=== PATIENT | female | born 1990 | race Caucasian/White ===

== ENCOUNTER 2019-08-18 18:15 | Emergency (ER) | payer OTHER ==
[2019-08-18] MEDS ORDERED: NA CHLORIDE 0.9% 1,000 ML ONE (19:14)
[2019-08-18 19:17] LABS: Absolute Lymphocytes (CBC) 2.5 K/uL (0.7-4.9); Basophils % 0.7 % (0-1.3); Hematocrit 32.3 % (36.0-45.0); Lymphocytes % 39.3 % (15.3-44.8); MPV 6.8 fL (7.6-11.3); RBC Red Blood Cell Count 3.58 M/uL (3.86-4.86)
[2019-08-18 19:21] LABS: Urine Bacteria <20 /HPF (<20); Urine Culture Reflex Order REFLEXED; Urine Mucus 2+ /HPF (NONE SEEN); Urine RBC <5 /HPF (NONE SEEN)
[2019-08-18 19:22] LABS: Urine Blood NEGATIVE (NEG); Urine Glucose NEGATIVE (NEG); Urine Protein NEGATIVE (NEG); Urine Specific Gravity 1.025 (1.005-1.030); Urine pH 7.5 (5.0-7.0)
[2019-08-18 19:45] LABS: BUN Blood Urea Nitrogen 9 mg/dL (7-18); Bicarbonate 22 mmol/L (21-32); Glucose Level 81 mg/dL (74-106); HCG, Quantitative 28334 mIU/mL (1-3); Potassium 3.6 mmol/L (3.5-5.1); Sodium Level 135 mmol/L (136-145)
--- NOTE | 2019-08-18 20:28 | ER ---
Nurse's Notes [facility] Name: Alla Chacko Age: 28 yrs Sex: Female : 1990 Arrival Date: 08/18/2019 Time: 18:19 Bed 14 Private MD: Brent Molina T Diagnosis: Influenza due to identified novel influenza A virus Presentation: 08/18 18:21 Presenting complaint: Patient states: i started with a really bad cough yesterday and i tw2 woke up today really achy and i had a fever i feel really bad and i feel crampy too, i am 14 weeks . Transition of care: patient was not received from another setting of care. Onset of symptoms was August 18, 2019. Risk Assessment: Do you want to hurt yourself or someone else? Patient reports no desire to harm self or others. Initial Sepsis Screen: Does the patient meet any 2 criteria? HR > 90 bpm. No. Patient's initial sepsis screen is negative. Does the patient have a suspected source of infection? No. Patient's initial sepsis screen is negative. Care prior to arrival: None. 18:21 Method Of Arrival: Ambulatory tw2 18:21 Acuity: SRINI 3 tw2 Triage Assessment: 18:26 General: Appears in no apparent distress. Behavior is calm, cooperative, appropriate tw2 for age. Pain: Complains of pain in abdomen. GI: Reports lower abdominal pain, nausea. 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 - Coronavirus screen:: The patient has NOT traveled to [place], [place], or [place] in the past 14 days. - Social history:: Smoking status: . - Ebola Screening: : Patient denies travel to an Ebola-affected area in the 21 days before illness onset. Screenin:45 Abuse screen: Denies threats or abuse. Denies injuries from another. Nutritional ca1 screening: No deficits noted. Tuberculosis screening: No symptoms or risk factors identified. Fall Risk IV access (20 points). Assessment: 18:45 General: Appears in no apparent distress. comfortable, Behavior is calm, cooperative, ca1 appropriate for age, Reports feeling ill for 12-24 hours. Pain: Complains of pain in suprapubic area, right lower quadrant and left lower quadrant Pain currently is 6 out of 10 on a pain scale. Quality of pain is described as crampy, Pain began 4 hours ago. Is intermittent. Neuro: Level of Consciousness is awake, alert, obeys commands, Oriented to person, place, time, situation, Appropriate for age. Cardiovascular: Heart tones S1 S2 present Capillary refill < 3 seconds Patient's skin is warm and dry. Respiratory: Airway is patent Respiratory effort is even, unlabored, Respiratory pattern is regular, symmetrical, Breath sounds are clear bilaterally. Respiratory: Reports cough that is since yesterday. GI: Abdomen is round non-distended, Bowel sounds present X 4 quads. Abd is soft X 4 quads Abdomen is tender to palpation in suprapubic area, right lower quadrant and left lower quadrant. : No deficits noted. No signs and/or symptoms were reported regarding the genitourinary system. EENT: Reports nasal congestion since yesterday. Derm: Skin is intact, is healthy with good turgor, Skin is pink, warm \T\ dry. Musculoskeletal: Circulation, motion, and sensation intact. Capillary refill < 3 seconds. 19:30 General: Appears in no apparent distress. comfortable, Behavior is calm, cooperative, rr5 appropriate for age. 19:30 Pain: Denies pain. Neuro: Level of Consciousness is awake, alert, obeys commands, rr5 Oriented to person, place, time. Cardiovascular: Capillary refill < 3 seconds Patient's skin is warm and dry. Respiratory: Airway is patent Respiratory effort is even, unlabored, Respiratory pattern is regular, symmetrical. GI: Abdomen is round non-distended, Reports cramping. : Reports . EENT: No signs and/or symptoms were reported regarding the EENT system. Derm: Skin is intact, Skin temperature is warm. Musculoskeletal: Circulation, motion, and sensation intact. Capillary refill < 3 seconds. 20:30 Reassessment: Patient appears in no apparent distress at this time. Patient is alert, rr5 oriented x 3, equal unlabored respirations, skin warm/dry/pink. discharge instruction given and explained without complaints made. Patient states symptoms have improved. Vital Signs: 18:25 BP 123 / 73; Pulse 107; Resp 18; Temp 99.3(TE); Pulse Ox 100% on R/A; Weight 83.91 kg tw2 (R); Height 5 ft. 4 in. (162.56 cm); Pain 7/10; 19:30 BP 121 / 70; Pulse 103; Resp 19; Temp 98.5; Pulse Ox 99% on R/A; rr5 20:30 BP 112 / 67; Pulse 93; Resp 18; Pulse Ox 100% on R/A; wh 18:25 Body Mass Index 31.75 (83.91 kg, 162.56 cm) tw2 ED Course: 17:00 No provider procedures requiring assistance completed. Initial lab(s) drawn, by me, ca1 sent to lab. Inserted saline lock: 20 gauge in right antecubital area, using aseptic technique. Blood collected. 18:19 Patient arrived in ED. mr 18:19 Brent Molina MD is Private Physician. mr 18:23 Triage completed. tw2 18:23 Arm band placed on. tw2 18:24 Ulices Quinter[facility]C [facility] la1 18:24 Reynaldo James MD is Attending Physician. la1 18:45 Patient has correct armband on for positive identification. Placed in gown. Bed in low ca1 position. Call light in reach. Side rails up X 1. Pulse ox on. NIBP on. Warm blanket given. 19:05 Elvin Clemens RN is Primary Nurse. rr5 20:49 IV discontinued, intact, bleeding controlled, No redness/swelling at site. wh Administered Medications: 19:12 Drug: NS 0.9% 1000 ml Route: IV; Rate: 1000 ml; Site: right antecubital; rr5 20:30 Follow up: Response: No adverse reaction; IV Status: Completed infusion; IV Intake: rr5 1000ml 20:40 Drug: Tamiflu 75 mg Route: PO; wh 20:45 Follow up: Response: No adverse reaction wh Intake: 20:30 IV: 1000ml; Total: 1000ml. rr5 Outcome: 20:11 Discharge ordered by . la1 20:46 Patient left the ED. rr5 20:46 Discharged to home ambulatory, with family. 20:46 Condition: stable 20:46 Discharge instructions given to patient, family, Instructed on discharge instructions, follow up and referral plans. medication usage, POC Demonstrated understanding of instructions, follow-up care, medications, POC Prescriptions given X 1. Signatures: Darby Garcia mr Quintero, Ulices, SENIOR RESEARCH PROJECT MANAGER-C SENIOR RESEARCH PROJECT MANAGER-Cla1 Joselyn Tse RN RN tw2 Yolanda Quiros Elvin Clemens RN RN rr5 Maile Alfonso, RN RN ca1
--- NOTE | 2019-08-18 20:29 | EDPHYS ---
Physician Documentation [facility] [place] Name: Alla Chacko Age: 28 yrs Sex: Female : 1990 Arrival Date: 08/18/2019 Time: 18:19 Bed 14 Private MD: Brent Molina T ED Physician Reynaldo James HPI: 08/18 18:47 This 28 yrs old Female presents to ER via Ambulatory with complaints of la1 Abdominal Cramping, 14 wks , Fever. 18:47 The patient presents to the emergency department with abdominal pain, of the suprapubic la1 area, that started this morning. The estimated gestational age is 14 weeks. course: care: none, Leakage of Fluid: none appreciated, Ultrasound: the patient has not had an ultrasound, Risk/complications:. Previous pregnancies: in previous pregnancies patient has had . The patient has not experienced similar symptoms in the past. pt with flu like sx, fever, cough for the last 2 days. 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 - Coronavirus screen:: The patient has NOT traveled to [place], [place], or [place] in the past 14 days. - Social history:: Smoking status: . - Ebola Screening: : Patient denies travel to an Ebola-affected area in the 21 days before illness onset. ROS: 18:48 Eyes: Negative for injury, pain, redness, and discharge, ENT: Negative for injury, la1 pain, and discharge, Neck: Negative for injury, pain, and swelling, Cardiovascular: Negative for chest pain, palpitations, and edema, Respiratory: Negative for shortness of breath, cough, wheezing, and pleuritic chest pain, Back: Negative for injury and pain, : Negative for injury, bleeding, discharge, and swelling, MS/Extremity: Negative for injury and deformity, Skin: Negative for injury, rash, and discoloration, Neuro: Negative for headache, weakness, numbness, tingling, and seizure. 18:48 Constitutional: Positive for body aches, chills, fatigue, fever, malaise. 18:48 Abdomen/GI: Positive for abdominal pain. Exam: 18:49 Constitutional: This is a well developed, well nourished patient who is awake, alert, la1 and in no acute distress. Head/Face: Normocephalic, atraumatic. Eyes: Periorbital areas with no swelling, redness, or edema. ENT: Mucous membranes moist. Neck: Trachea midline No Meningismus. Chest/axilla: Normal chest wall appearance and motion. Nontender with no deformity. No lesions are appreciated. Cardiovascular: Regular rate and rhythm with a normal S1 and S2. Respiratory: Lungs have equal breath sounds bilaterally, clear to auscultation 18:49 Back: No spinal tenderness. No costovertebral tenderness. Full range of motion. MS/ Extremity: Pulses equal, no cyanosis. Neurovascular intact. Full, normal range of motion. 18:49 Abdomen/GI: Inspection: gravid appearance, is noted, Bowel sounds: normal, in all quadrants, Palpation: abdomen is soft and non-tender, in all quadrants. Vital Signs: 18:25 BP 123 / 73; Pulse 107; Resp 18; Temp 99.3(TE); Pulse Ox 100% on R/A; Weight 83.91 kg tw2 (R); Height 5 ft. 4 in. (162.56 cm); Pain 7/10; 19:30 BP 121 / 70; Pulse 103; Resp 19; Temp 98.5; Pulse Ox 99% on R/A; rr5 20:30 BP 112 / 67; Pulse 93; Resp 18; Pulse Ox 100% on R/A; wh 18:25 Body Mass Index 31.75 (83.91 kg, 162.56 cm) tw2 MDM: 18:29 Patient medically screened. la1 20:08 Data reviewed: vital signs, nurses notes, lab test result(s), radiologic studies, and la1 as a result, I will discharge patient. 20:09 Counseling: I had a detailed discussion with the patient and/or guardian regarding: the la1 historical points, exam findings, and any diagnostic results supporting the discharge/admit diagnosis, lab results, radiology results, the need for outpatient follow up, an OB/Gyne specialist. 08/18 18:36 Order name: Flu la08/18 18:36 Order name: Urine Microscopic Only la08/18 18:36 Order name: CBC with Diff la08/18 18:36 Order name: BMP la08/18 18:36 Order name: HCG-Quantitative la08/18 18:49 Order name: Urine Dipstick--Ancillary (enter results) em08/18 18:49 Order name: Urine --Ancillary (enter results) em08/18 19:22 Order name: Urine Microscopic Only; Complete Time: 19:47 EDMS 08/18 19:23 Order name: Urine --Ancillary; Complete Time: 19:47 EDMS 08/18 19:23 Order name: Urine Dipstick-Ancillary; Complete Time: 19:47 EDMS 08/18 19:29 Order name: Influenza Screen (A ; Complete Time: 19:47 EDMS 08/18 19:44 Order name: CBC with Automated Diff; Complete Time: 19:47 EDMS 08/18 19:45 Order name: Basic Metabolic Panel; Complete Time: 19:47 EDMS 08/18 19:45 Order name: HCG, Quantitative; Complete Time: 19:47 EDMS 08/18 18:36 Order name: Urine Dipstick-Ancillary (obtain specimen); Complete Time: 18:52 la08/18 18:36 Order name: Urine Test (obtain specimen); Complete Time: 18:52 la08/18 18:36 Order name: IV; Complete Time: 19:06 la08/18 18:43 Order name: US OB Limited 08/18 20:15 Order name: Influenza Screen (A EDMS Administered Medications: 19:12 Drug: NS 0.9% 1000 ml Route: IV; Rate: 1000 ml; Site: right antecubital; rr5 20:30 Follow up: Response: No adverse reaction; IV Status: Completed infusion; IV Intake: rr5 1000ml 20:40 Drug: Tamiflu 75 mg Route: PO; wh 20:45 Follow up: Response: No adverse reaction Disposition: 08/18/19 20:11 Discharged to Home. Impression: Influenza due to identified novel influenza A virus. - Condition is Stable. - Discharge Instructions: Fever, Adult, Influenza, Adult. - Prescriptions for Tamiflu 75 mg Oral Capsule - take 1 capsule by ORAL route every 12 hours for 5 days; 10 capsule. - Work release form, Medication Reconciliation Form, Thank You Letter, Antibiotic Education form. - Follow up: Private Physician; When: 2 - 3 days; Reason: Recheck today's complaints, Re-evaluation by your physician. - Problem is new. - Symptoms have improved. Addendum: 08/20/2019 07:26 Co-signature as Attending Physician, Reynaldo James MD. r n Signatures: Dispatcher [employer] Reynaldo James MD MD rn Ingrid, Ulices, GLASS DESIGNER-C GLASS DESIGNER-Cla1 Joselyn Tse RN RN tw2 Yolanda Quiros Raymond, RN RN rr5 Corrections: (The following items were deleted from the chart) 08/18 20:46 20:11 08/18/2019 20:11 Discharged to Home. Impression: Influenza due to identified rr5 novel influenza A virus. Condition is Stable. Forms are Medication Reconciliation Form, Thank You Letter, Antibiotic Education, Prescription Opioid Use. Follow up: Private Physician; When: 2 - 3 days; Reason: Recheck today's complaints, Re-evaluation by your physician. Problem is new. Symptoms have improved. la1
[2019-08-18] MEDS ORDERED: OSELTAMIVIR 75 MG CAP ONE (20:31)
--- NOTE | 2019-08-18 20:39 | RAD REPORT ---
EXAM DESCRIPTION: US - OB Limited - 08/18/2019 7:35 pm CLINICAL HISTORY: ABD CRAMPING, COMPARISON: No comparisons FINDINGS: A single intrauterine gestation identified and normal shaped gestational sac. Anatomic ass essment is limited. No gross anatomic abnormality identified. [place]-rump length corresponds to a 13 w [place] 2 day age. Calculated SANTI is 02/21/2020. Heart rate is normal. No intrauterine mass or hematoma. Cervical canal is 3.4 cm with closed internal os. Both ovaries are identified and show normal blood flow within the stroma. No suspicious solid or cyst ic ovarian or adnexal finding. IMPRESSION: Single 13 week 2 day IUP with normal heart rate and no gross anatomic abnormality. No uterine abnormality. Cervical canal is closed. No ovarian or adnexal significant finding.
[2019-08-18 21:02] VITALS: TEMP 98.5
[2019-08-18 21:04] VITALS: BP 112/67; O2SAT 100
== END 2019-08-18 20:46 | disposition home or self-care (01) ==
LOC: ER 18:15
DX: O98.512 Other viral diseases complicating pregnancy, second trimester (principal); J09.X9 Influenza due to identified novel influenza A virus with other manifestations
CPT/HCPCS: 87088; 85025; 87086; 80048; 36415; 81025; 84702; 87804 ×2; 76815; 96360; 99284; J7030; 81003; 81015

== ENCOUNTER 2020-05-21 13:00 | Observation (INO) | payer OTHER ==
--- OUTSIDE RECORDS SUMMARY | 2020-05-21 13:02 | XMS REPORT | Continuity of Care Document ---
:1990 Author Organization [facility] t Address [address] [place] [address] Care Team Providers Name Role Phone Unavailable Unavailable Unavailable Payers Payer Name Policy Type Policy Number Effective Date Expiration Date S ource Problems This patient has no known problems. Allergies, Adverse Reactions, Alerts Allergy Allergy Status Severity Reaction(s) Onset Inactive Treating Comm ents Source Name Type Date Date Clinician aspirin DA Active U 2019-0 [facility] [place] grape FA Active U 2020-0 [facility] [place] aspirin DA Active U 2020-0 [facility] [place] grape FA Active U 2019-0 [facility] [place] aspirin DA Active U 2018-0 [facility] [place] grape FA Active U 2018-0 [facility] 503 [facility] [place] Medications This patient has no known medications. Procedures This patient has no known procedures. Results Test Description Test Time Test Comments Results Result Comments Source [facility] 2020-01-06 TRIMESTER 16:04:00 RUN DATE: 01/09/20 [facility] PAGE 1 RUN TIME: 1301 Specimen Inquiry RUN USER: INTERFACE PATIENT: PAT ROSENBAUM LOC: JOSIE U #: [id number] AGE/SX: 29 ROOM: [facility] RE01/03/20REG DR: Lion Joseph MD : [birth year] BED: A DIS: 01/07/20 STATUS: DIS IN TLOC: SPEC #: [id number] RECD: 01/03/20 STATUS: MARCOS SHAW #: [id number] BECKY: 01/03/20- [facility] DR: Lion Joseph MD ENTERED: 01/04/20 SP TYPE: PLACIII OTHR DR: ORDERED: LEVEL V SURGICA CODES: [id number] - PLACENTA, NOS PROCEDURES: LEVEL V SURGICA (Incomplete) TISSUES: PLACENTA, NOS - PLACENTA CLINICAL HISTORY 29 year old, 34.5 weeks, L2, repeat section, gestational diabetes, nonreassuring monitoring (wpd) FINAL DIAGNOSIS Placenta, section: - placenta with third trimester morphology (595 gms), mean placental weight at 34 weeks - 381 gms (placenta is large for dates, greater than the 97th percentile for weight at 34 weeks) - multifocal villous edema - intervillous fibrin thrombus, involving less than 5% of the total placental parenchyma - trivascular umbilical cord and membranes - free of inflammation CPT code(s): 54549 pkg/wpd GROSS DESCRIPTION The specimen was received in a container, labeled with the patient's name, unit number and designated "placenta". The following attributes are observed: Cord insertion: 4.5 cm from margin Cord length: 27.0 cm Number of vessels: 3 Cord color: Pierce-white Other cord findings: None surface findings: Blue-bhandari, wrinkled, glistening and focally disrupted Vasculature: Displays unremarkable blood vasculature Membranes rupture site: Undetermined rupture site Membrane color: Pierce-pink CONTINUED ON NEXT PAGE RUN DATE: 01/09/20 [facility] PAGE 2 RUN TIME: 1301 Specimen Inquiry RUN USER: INTERFACE SPEC #: [id number] PATIENT: PAT ROSENBAUM #[id number] (Continued)--------- --- GROSS DESCRIPTION (Continued) Other membrane findings: Focally opaque and disrupted The trimmed placental weight: 595 gm Disk measurement: 17.5 x 16.0 x 4.0 cm in greatest dimension Accessory lobes: None Maternal surface: Lobulated and disrupted, completeness cannot be determined Parenchyma: Red-brown and spongy Parenchyma lesions: A yellow-red lesion measuring 1.3 cm is identified Cassettes: A1 through A4 maria l/gerald 01/04/20 MICROSCOPIC DESCRIPTION The placenta is composed of small vascular villi. Multifocal villous edema is present. An intervillous fibrin thrombus is identified. The trivascular umbilical cord and membranes are free of inflammation. pkg/wpd Signed Anastasia Hickey 01/06/20 1604 END OF REPORT HGB HCT 2020-01-05 06:39:00 Test Item Value Reference Range Interpretation Comme nts HEMOGLOBIN (test code = HGB) 9.4 g/dL 10.7-13.9 L HEMATOCRIT (test code = HCT) 29.9 % 32.1-42.1 L AG HEPATITIS B [id number] 02:50:00 Test Item Value Reference Range Interpretation Comments AG HEPATITIS B SURFACE (test code NONREACTIVE NONREACTIVE = HBSAG) IS CONSENT FORM SIGNED FOR HIV TESTING? YAB HEPATITIS C [id number] 02:50:00 Test Item Value Reference Range Interpretation Comments AB HEPATITIS C (test code = NONREACTIVE NONREACTIVE HCVAB) SIGNAL TO CUTOFF (test code = <0.02 <0.80 N CUTOFF) IS CONSENT FORM SIGNED FOR HIV TESTING? YAB [id number] 02:50:00 Test Item Value Reference Range Interpretation Comments AB TREPONEMA (test code = TREPAB) NONREACTIVE NONREACTIVE IS CONSENT FORM SIGNED FOR HIV TESTING? YAB HIV 1 02:50:00 Test Item Value Reference Range Interpretation Comments AB HIV 1 2 (test NONREACTIVE NONREACTIVE Done by [facility] code = [id number]) 4th Gen HIV Ag/Ab Combo Screen IS CONSENT FORM SIGNED FOR HIV TESTING? YCAPILLARY BLOOD [id number] 21:49:00 Test Item Value Reference Range Interpretation Comments CAPILLARY BLOOD GAS PH (test code 7.129 7.35-7.45 LL = PHC) CAPILLARY BLOOD GAS PCO2 (test 54.3 mmHg code = PCO2C) CAPILLARY BLOOD GAS PO2 (test code 31.3 mmHg = PO2C) CBG HCO3 (test code = HCO3C) 17.6 meq/L CBG BASE EXCESS (test code = BEC) -11.9 CBG O2 SATURATION (test code = 42.8 % SATC) CAPILLARY BLOOD GAS TYPE (test CBLV code = TYPEC) CAPILLARY BLOOD GAS FIO2 (test 21.0 % code = FIO2C) CAPILLARY BLOOD [id number] 21:49:00 Test Item Value Reference Range Interpretation Comments CAPILLARY BLOOD GAS PH (test code 6.931 7.35-7.45 LL = PHC) CAPILLARY BLOOD GAS PCO2 (test 119.3 mmHg code = PCO2C) CBG HCO3 (test code = HCO3C) 24.5 meq/L CBG BASE EXCESS (test code = BEC) -11.0 CAPILLARY BLOOD GAS TYPE (test CBLA code = TYPEC) CAPILLARY BLOOD GAS FIO2 (test 21.0 % code = FIO2C) COMPREHENSIVE METABOLIC [id number] 21:37:00 Test Item Value Reference Range Interpretation Comments SODIUM (test code = NA) 138 mEq/L 135-145 N POTASSIUM (test code = K) 4.8 mEq/L 3.5-5.0 N CHLORIDE (test code = CL) 105 mEq/L 100-115 N CARBON DIOXIDE (test code = CO2) 21 mEq/L 22-31 L ANION GAP (test code = GAP) 16.70 10-20 N GLUCOSE (test code = GLU) 98 mg/dL 65-110 N BLOOD UREA NITROGEN (test code = 12 mg/dL 7-18 N BUN) GLOMERULAR FILTRATION RATE (test 119 ml/min >60 N code = GFR) CREATININE (test code = CREAT) 0.6 mg/dL 0.5-1.0 N TOTAL PROTEIN (test code = PROT) 6.8 gm/dL 6.3-8.2 N ALBUMIN (test code = ALB) 2.7 gm/dL 3.4-4.8 L CALCIUM (test code = CA) 9.1 mg/dL 8.4-10.2 N BILIRUBIN TOTAL (test code = 0.3 mg/dL 0.2-1.0 N BILT) SGOT/AST (test code = AST) 32 units/L 15-37 N SGPT/ALT (test code = ALT) 40 units/L 12-78 N ALKALINE PHOSPHATASE TOTAL (test 107 units/L 46-116 N code = ALKP) CBC W/AUTO [id number] 21:15:00 Test Item Value Reference Range Interpretation Comments WHITE BLOOD CELL (test code = WBC) 7.9 K/mm3 6.6-12.1 N RED BLOOD CELL (test code = RBC) 4.42 M/mm3 3.45-5.01 N HEMOGLOBIN (test code = HGB) 12.1 g/dL 10.7-13.9 N HEMATOCRIT (test code = HCT) 38.0 % 32.1-42.1 N MEAN CELL VOLUME (test code = MCV) 86 fL 84.1-94.8 N MEAN CELL HGB (test code = MCH) 27.4 pg 27-35 N MEAN CELL HGB CONCETRATION (test 31.8 gm/dL 32.2-34.1 L code = MCHC) RED CELL DISTRIBUTION WIDTH (test 14.4 % 12.4-16.5 N code = RDW) PLATELET COUNT (test code = PLT) 278 K/mm3 133-385 N MEAN PLATELET VOLUME (test code = 9.9 fl 9.1-12.7 N MPV) NEUTROPHIL % (test code = NT%) 54.5 % 56.5-79.4 L LYMPHOCYTE % (test code = LY%) 38.9 % 14.3-34.3 H MONOCYTE % (test code = MO%) 5.3 % 5.1-10.4 N EOSINOPHIL % (test code = EO%) 0.6 % 0.1-3.0 N BASOPHIL % (test code = BA%) 0.4 % 0.1-1.0 N NEUTROPHIL # (test code = NT#) 4.3 K/mm3 LYMPHOCYTE # (test code = LY#) 3.1 K/mm3 MONOCYTE # (test code = MO#) 0.4 K/mm3 EOSINOPHIL # (test code = EO#) 0.05 K/mm3 BASOPHIL # (test code = BA#) 0.0 K/mm3 RBC MORPHOLOGY REQUIRED (test code NORMAL NORMAL = RBCM) PLATELET MORPHOLOGY REQUIRED (test NORMAL NORMAL code = PLTMR) - US FET BIO PH AK W/O [id number] 21:14:00 Patient Name: PAT ROSENBAUM Unit No: [id number] Report Has Been Amended EXAMS: CPT CODE: [id number] US FET BIO PH AK W/O NST 91280 Addendum- 01/03/2020 SIGNED 01/03/2020 ADDENDUM: [id number] US/USBPPWONST Addendum: Finding were discussed with patient's nurse Sushila on 01/03/2020, 914 pm. I was informed thatpatient is already in surgery. [id number] Reported and signed by: Pro Velasquez M.D. Transcribed: 01/03/2020 (6) [email or web address] Report EXAM: US, US FET BIO PH AK W/O NST: 01/03/2020, 1944 hours EXAM: US, DOP VELOCMITYUMBILICL ART: 01/03/2020, 1943 hours Clinical Indication: 34.5 weeks IUP. DFM. Comparison:None. TECHNIQUE: Limited obstetrical ultrasound is performed for biophysical profile evaluation with lopez scale and M-mode imaging. FINDINGS: Single viable intrauterine gestation is seen in vertex presentation. heart rate is 1 40 bpm. Placenta is anterior, grade 2. No evidence of placenta previa. The amniotic fluid index is 26.7 cm with largest pocket measuring 9.7 cm. Cervical length is 3.8 cm. biophysical profile: tone: 0 movements: 0 breathin RICHARD: 2 At the Cord insertion, there appears to be reversal of flow. Please correlate. BPP: 2 out of 8. IMPRESSION: 2. Abnormal biophysical profile and Doppleras above as above [facility] NAME: PAT ROSENBAUM DRadiology Department PHYS: Evie Chan MD [address] : 1990 AGE: 29 SEX: F [place] [address] LOC: DILLON A PHONE #: [phone] EXAM DATE: 01/03/2020 STATUS: ADM IN FAX #: [phone] RAD NO: Page 1 Signed Report (CONTINUED) Patient Name: PAT ROSENBAUM Unit No: [id number] Report Has Been Amended EXAMS: CPT CODE: [id number] US FET BIO PH AK W/O NST 35113 <Continued> with biophysical profile score of 2/8 2. Single viable viable intrauterine gestation in vertex presentation. GENERAL OBSERVATIONS REGARDING LIMITED ULTRASOUND: 1. A normal or negative sonogram report should not delay further investigation of a clinically suspicious or abnormal . 2. position or overlap of parts may prevent complete evaluation of the fetus. 3. Congenital and developmental abnormalities are not always sonographically visualized. 4. Repeat sonograms may be necessary depending onthe clinical development during . SL: ARTURO at 2103 Reported and signed by: Pro Velasquez M.D. CC: Evie Santoyo MD Technologist: Rachell Middleton RDMS Probe: Trnscrbd D/ (2103) [email or web address] Orig Print D/T: S: 01/03/2020 (2106) [facility] NAME: PAT ROSENBAUM Radiology Department PHYS: Evie Chan MD [address] : 1990 AGE: 29 SEX: F [place] [address] LOC: CHECOOR1 A PHONE #: [phone] EXAM DATE: 01/03/2020 STATUS: ADM IN FAX #: [phone] RAD NO: Page 2 Signed Report Patient Name: PAT ROSENBAUM Unit No: [id number] Report Has Been Amended EXAMS: CPT CODE: [id number] US FET BIO PH AK W/O NST 13542 <Continued> [facility] NAME: PAT ROSENBAUM Radiology Department PHYS: Evie Chan MD [address] : 1990 AGE: 29 SEX: F [place], [place] [address] LOC: DILLON A PHONE #: [phone] EXAM DATE: 01/03/2020 STATUS: ADM IN FAX #: [phone] RAD NO: Page 3 Signed ReportCoronavirus 2018 nCoV [id number] 21:07:00 Test Item Value Reference Range Interpretation Comments Coronavirus 2018 Negative Negative RESULTS CA LLED TO [facility] Bedside (test E.READ BA CK & CONFIRMED? code = YBY F.LAB.IR 2106 COVNONPUIBED) This result do es not rule out co-infectio ns with otherpathogens. * False negative result s may occur if a specimen i simproperly collected, arnold sported or handled. False negativeresults may also occur if amplif ication inhibitors arep resent in the specimen or if inadequate leve ls of virusesare pres ent in the specimen. Negat angel results should beconsid ered in the context of a pa tient's recent exposure s,history and the presenc e of clinical signs and symptomsconsist ent with COVID-19. * Neg ative results should be treated as presumptive andtested with an alterna tive FDA authorized mole cular assayif necessa ry for clinical managm ent, including infectioncontro l. * As with any molecu lar test,mutations within the target regions Preciado ID NOW COVID-[address] could affect primeran d/or probe binding resulti ng in failure to dete ct therescence of the virus.TEST PERF ORMED UNDER AN EMERGENCY US E AUTHORIZATION F ROM FDA - DOP VELOCITY UMBILCL [id number] 21:04:00 Patient Name: PAT ROSENBAUM Unit No: [id number] EXAMS: CPT CODE: [id number] DOP VELOCITY UMBILCL ART 41172 EXAM: US, US FET BIO PH AK W/O NST: 01/03/2020, 1944 hours EXAM: US, DOP VELOCMITYUMBILICL ART: 01/03/2020, 1944 hours Clinical Indication: 34.5 weeks IUP. DFM. Comparison:None. TECHNIQUE: Limited obstetrical ultrasound is performed for biophysical profile evaluation with lopez scale and M-mode imaging. FINDINGS: Single viable intrauterine gestation is seen in vertex presentation. heart rate is 1 40 bpm. Placenta is anterior, grade 2. No evidence of placenta previa. The amniotic fluid index is 26.7 cm with largest pocket measuring 9.7 cm. Cervical length is 3.8 cm. biophysical profile: tone: 0 movements: 0 breathin RICHARD: 2 At the Cord insertion, there appears to be reversal of flow. Please correlate. BPP: 2 out of 8. IMPRESSION: 2. Abnormal biophysical profile and Doppleras above as above with biophysical profile score of 2/8. 2. Single viable viable intrauterine gestation in vertex presentation. GENERAL OBSERVATIONS REGARDING LIMITED ULTRASOUND: 1. A normal or negative sonogram report should not delay further investigation of a clinically suspicious or abnormal . 2. position or overlap of parts may prevent complete evaluation of the fetus. 3. Congenital and developmental abnormalities are not always sonographically visualized. 4. Repeat sonograms may be necessary depending on the clinical development during . [facility] NAME: PAT ROSENBAUM Radiology Department PHYS: Ceci Torres [address] : 1990 AGE: 29 SEX: F [place], [place] [address] LOC: CHECOOR1 A PHONE #: [phone] EXAM DATE: 01/03/2020 STATUS: ADM IN FAX #: [phone] RAD NO: Page 1 Signed Report (CONTINUED) Patient Name: PAT ROSENBAUM Unit No: [id number] EXAMS: CPT CODE: [id number] DOP VELOCITY UMBILCL ART 35113 <Continued> SL: BHARTID-H at 2103 Reported and signed by: Pro Velasquez M.D. CC: Technologist: Rachell Middleton RDMS Probe: Trnscrbd D/ (2103) [email or web address] Orig Print D/T: S: 01/03/2020 (2106) [facility] NAME: ILSAPAT Radiology Department PHYS: Lion Torres MD [address] : 1990 AGE: 29 SEX: F [place] [address] LOC: BrianaAVERYKENDY Sánchez PHONE #: [phone] EXAM DATE: 01/03/2020 STATUS: ADM IN FAX #: [phone] RAD NO: Page 2 Signed Report Patient Name: PAT ROSENBAUM Unit No: [id number] EXAMS: CPT CODE: [id number] DOP VELOCITY UMBILCL ART 29553 <Continued> [facility] NAME: ILSAPAT [place] Radiology Department PHYS: Lion Torres MD [address] : 1990 AGE:29 SEX: F [place] [address] LOC: GUNNER1 A PHONE #: [phone] EXAM DATE: 01/03/2020 STATUS: ADM IN FAX #: [phone] RAD NO: Page 3 Signed Report- US FET BIO PH AK W/O [id number] 21:04:00 Patient Name: PAT ROSENBAUM Unit No: [id number] EXAMS: CPT CODE: [id number] US FET BIO PH AK W/O NST 94283 EXAM: US, US FET BIO PH AK W/O NST: 01/03/2020, 1944 hours EXAM: US, DOP VELOCMITYUMBILICL ART: 01/03/2020, 1944 hours Clinical Indication: 34.5 weeks IUP. DFM. Comparison:None. TECHNIQUE: Limited obstetrical ultrasound is performed for biophysical profile evaluation with lopez scale and M-mode imaging. FINDINGS: Single viable intrauterine gestation is seen in vertex presentation. heart rate is 1 40 bpm. Placenta is anterior, grade 2. No evidence of placenta previa. The amniotic fluid index is 26.7 cm with largest pocket measuring 9.7 cm. Cervical length is 3.8 cm. biophysical profile: tone: 0 movements: 0 breathin RICHARD: 2 At the Cord insertion, there appears to be reversal of flow. Please correlate. BPP: 2 out of 8. IMPRESSION: 2. Abnormal biophysical profile and Doppleras above as above with biophysical profile score of 2/8 2. Single viable viable intrauterine gestation in vertex presentation. GENERAL OBSERVATIONS REGARDING LIMITED ULTRASOUND: 1. A normal or negative sonogram report should not delay further investigationof a clinically suspicious or abnormal . 2. position or overlap of parts may prevent complete evaluation of the fetus. 3. Congenital and developmental abnormalities are not always sonographically visualized. 4. Repeat sonograms may be necessary depending on the clinical development during . [facility] NAME: PAT ROSENBAUM Radiology Department PHYS: Evie Chan MD [address] : 1990 AGE: 29 SEX: F [place], [place] [address] LOC: DILLON Sánchez PHONE #: [phone] EXAM DATE: 01/03/2020 STATUS: ADM IN FAX #: [phone] RAD NO: Page 1 Signed Report (CONTINUED) Patient Name: PAT ROSENBAUM Unit No: [id number] EXAMS: CPT CODE: [id number] FET BIO PH AK W/O NST 26000 <Continued> SL: [id number] Reported and signed by: Pro Velasquez M.D. CC: Evie Santoyo MD Technologist: Rachell Middleton RDMS Probe: Trnscrbd D/ (2103) [email or web address] Orig Print D/T: S: 01/03/2020 (2106) [facility] NAME: PAT ROSENBAUM D Radiology Department PHYS: Evie Chan MD [address] : 1990 AGE: 29 SEX: F [place] [address] LOC: DILLON Sánchez PHONE #: [phone] EXAM DATE: 01/03/2020 STATUS: ADM IN FAX #: [phone] RAD NO: Page 2 Signed Report Patient Name: PAT ROSENBAUM Unit No: [id number] EXAMS: CPT CODE: [id number] FET BIO PH AK W/O NST 03203 <Continued> [facility] NAME: ILSAPAT [place] Radiology Department PHYS: Evie Chan MD [address] : 1990 AGE: 29 SEX: F [place] [address] LOC: DILLON Sánchez PHONE #: [phone] EXAM DATE: 01/03/2020 STATUS: ADM IN FAX #: [phone] RAD NO: Page 3 Signed ReportURINALYSIS [id number] 19:41:00 Test Item Value Reference Range Interpretation Comments UA COLOR (test code = COLU) YELLOW YELLOW UA APPEARANCE (test code = CLEAR CLEAR APPU) UA GLUCOSE DIPSTICK (test code 3+ NEG A = DGLUU) UA BILIRUBIN DIPSTICK (test NEGATIVE NEG code = BILU) UA KETONE DIPSTICK (test code NEGATIVE NEG = KETU) UA SPECIFIC GRAVITY (test code 1.021 1.001-1.035 N = SGU) UA BLOOD DIPSTICK (test code = NEG NEG COCO) UA PH DIPSTICK (test code = 6.0 5-9 ADIEL) UA PROTEIN DIPSTICK (test code NEGATIVE NEG = PROU) UA UROBILINIOGEN DIPSTICK NEGATIVE mg/dL NEG (test code = URO) UA NITRITE DIPSTICK (test code NEG NEG = OBINNA) UA LEUKOCYTE ESTERASE DIPSTICK NEG NEG (test code = LEUU) UA WBC (test code = WBCU) 0-2 #/hpf NONE SEEN UA EPITHELIAL CELLS (test code RARE #/HPF RARE-FEW = EPIU) UA MUCUS (test code = MUCU) RARE NONE SEEN URINE SAMPLE: CLEAN CATCH
[2020-05-21] MEDS ORDERED: TETANUS & DIPHTHERIA TOX,ADULT 0.5 ML VIAL ONE (14:19)
[2020-05-21] MEDS ORDERED: HYDROCODONE/APAP 7.5/325 MG TAB ONE (14:19)
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
--- NOTE | 2020-05-21 15:03 | ER ---
Nurse's Notes [facility] Name: Alla Chacko Age: 29 yrs Sex: Female : 1990 Arrival Date: 05/21/2020 Time: 13:00 Bed 30 Private MD: Diagnosis: Fracture of nasal bones;Open wound of nose Presentation: 05/21 13:24 Chief complaint: Patient states: Was running, tripped and hit the wall with a apt ca1 number sign 30 minutes COMP[employer]ITIVE [employer]. Avulsed wound on the nose. Bleeding controlled. Coronavirus screen: Client denies travel out of the [place] in the last 14 days. At this time, the client does not indicate any symptoms associated with coronavirus-19. Ebola Screen: Patient negative for fever greater than or equal to 101.5 degrees Fahrenheit, and additional compatible Ebola Virus Disease symptoms Patient denies exposure to infectious person. Patient denies travel to an Ebola-affected area in the 21 days before illness onset. No symptoms or risks identified at this time. Initial Sepsis Screen: Does the patient meet any 2 criteria? No. Patient's initial sepsis screen is negative. Does the patient have a suspected source of infection? No. Patient's initial sepsis screen is negative. Risk Assessment: Do you want to hurt yourself or someone else? Patient reports no desire to harm self or others. Onset of symptoms was May 21, 2020. 13:24 Method Of Arrival: Ambulatory ca1 13:24 Acuity: SRINI 4 ca1 14:00 Complicating Factors: There are no complicating factors for this patient. iw 14:45 Acuity: SRINI 3 iw Triage Assessment: 15:57 General: Appears in no apparent distress. 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 - Social history:: Smoking status: Patient denies any tobacco usage or history of. Screenin:56 Abuse screen: Denies threats or abuse. Denies injuries from another. Nutritional iw screening: No deficits noted. Tuberculosis screening: No symptoms or risk factors identified. Fall Risk IV access (20 points). Assessment: 13:35 General: Appears in no apparent distress. uncomfortable, Behavior is calm, cooperative. iw Pain: Complains of pain in bridge of nose. Neuro: Level of Consciousness is awake, alert, obeys commands, Oriented to person, place, time, situation, Moves all extremities. Cardiovascular: Patient's skin is warm and dry. Respiratory: Airway is patent Respiratory effort is even, unlabored. Derm: Skin is healthy with good turgor. Musculoskeletal: Range of motion: intact in all extremities, Injury Description: Avulsion sustained to bridge of nose is partial was sustained 30-60 minutes ago. Injury Description: Laceration sustained to bridge of nose is avulsion. 14:56 Reassessment: Patient appears in no apparent distress at this time. Patient and/or iw family updated on plan of care and expected duration. Pain level reassessed. Patient is alert, oriented x 3, equal unlabored respirations, skin warm/dry/pink. 15:34 Reassessment: Patient appears in no apparent distress at this time. Patient and/or iw family updated on plan of care and expected duration. Pain level reassessed. Patient is alert, oriented x 3, equal unlabored respirations, skin warm/dry/pink. pt updated on POC, will be admitted and seen by Dr. Marquez for wound repair. 15:58 Reassessment: Patient appears in no apparent distress at this time. Patient and/or iw family updated on plan of care and expected duration. Pain level reassessed. 16:30 Reassessment: attempt X 2 for report, nurse not assigned, Lauren will call me back. iw Vital Signs: 13:24 BP 147 / 84; Pulse 93; Resp 16 S; Temp 97.3(TE); Pulse Ox 99% on R/A; Weight 88.45 kg iw (R); Height 5 ft. 5 in. (165.10 cm) (R); Pain 8/10; 15:57 BP 119 / 63; Pulse 68; Resp 16; Pulse Ox 98% on R/A; iw 13:24 Body Mass Index 32.45 (88.45 kg, 165.10 cm) iw Dalton Coma Score: 13:50 Eye Response: spontaneous(4). Verbal Response: oriented(5). Motor Response: obeys cp commands(6). Total: 15. ED Course: 13:00 Patient arrived in ED. as 13:26 Triage completed. ca1 13:27 Arm band placed on right wrist. ca1 13:33 Martha Velázquez, RN is Primary Nurse. iw 13:34 Edi Vivar PA is PHCP. cp 13:34 Saravanan Choudhury MD is Attending Physician. cp 13:35 Patient has correct armband on for positive identification. iw 14:13 CT completed. Patient tolerated procedure well. Patient moved to CT via wheelchair. jg6 Patient moved back from CT. 14:17 CT Facial Bones W/O Con In Process Unspecified. EDMS 15:02 Chalo Chapman DO is Hospitalizing Provider. cp 15:15 Initial lab(s) drawn, by me, sent to lab. Inserted saline lock: 20 gauge in right jp3 antecubital area, using aseptic technique. Blood collected. 15:15 Patient maintains SpO2 saturation greater than 95% on room air. jp3 16:12 No provider procedures requiring assistance completed. Patient admitted, IV remains in iw place. 16:13 Wound care: to laceration located on nose and bridge of nose was debrided using jp3 Betadine scrub, irrigated with normal saline, dressed with saline soaked 4x4s covered with dry 4x4s, Patient tolerated well. 17:10 Urine Dipstick--Ancillary (enter results) Sent. jp3 17:10 Urine --Ancillary (enter results) Sent. 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 Exp: iw 09/23/2021. Lot #: [id number]. } Route: IM; Site: right deltoid; 14:25 Drug: Hydrocodone-Acetaminophen (7.5 mg-325 mg) 1 tabs Route: PO; iw 15:34 Drug: ceFAZolin 1 grams Volume: 50 ml; Route: IVPB; Infused Over: 30 mins; Site: right iw antecubital; 15:55 Drug: fentaNYL (PF) 25 mcg Route: IVP; Site: right antecubital; iw 15:55 Drug: Zofran (Ondansetron) 4 mg Route: IVP; Site: right antecubital; iw 17:06 Drug: NS 0.9% 1000 ml Route: IV; Rate: 1 bolus; Site: right antecubital; iw 17:07 Drug: morphine 2 mg Route: IVP; Site: right antecubital; iw 17:09 Drug: morphine 2 mg Route: IVP; Site: right antecubital; iw Outcome: 15:02 Decision to Hospitalize by Provider. cp 17:30 Admitted to Med/surg accompanied by tech, via wheelchair, Report called to NATACHA Polo iw 17:30 Condition: good 17:30 Discharge instructions given to patient, family, Instructed on the need for admit, Demonstrated understanding of instructions. 17:31 Patient left the ED. iw Signatures: Dispatcher [employer] Haylie Collier Irene, RN RN iw Edi Vivar PA PA cp Pisarski, Jacob jp3 Jeannine Stone6 Maile Alfonso RN RN ca1 Corrections: (The following items were deleted from the chart) 14:54 13:24 Pulse 93bpm; Resp 16bpm; Spontaneous; Pulse Ox 99% RA; Temp 97.3F Temporal; 88.45 iw kg Reported; Height 5 ft. 5 in. Reported; BMI: 32.4; Pain 8/10; ca1
--- NOTE | 2020-05-21 15:04 | EDPHYS ---
Physician Documentation [facility] Name: Alla Chacko Age: 29 yrs Sex: Female : 1990 Arrival Date: 05/21/2020 Time: 13:00 Bed 30 Private MD: ED Physician Saravanan Choudhury HPI: 05/21 13:50 This 29 yrs old Female presents to ER via Ambulatory with complaints of cp Laceration To Nose. 13:50 The patient or guardian reports injury. cp 13:50 The complaints affect the nose. Context of injury: resulted from a direct blow. Onset: cp The symptoms/episode began/occurred just prior to arrival. Patient reports stumbling face first into wall and possibly striking bridge of nose against apartment numbers on wall of apartment complex. 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 - Social history:: Smoking status: Patient denies any tobacco usage or history of. ROS: 13:55 Constitutional: Negative for body aches, chills, fever. cp 13:55 Eyes: Negative for injury, pain, redness, and discharge. cp 13:55 ENT: Positive for injury and nose pain. 13:55 Cardiovascular: Negative for chest pain, palpitations. 13:55 Respiratory: Negative for cough, shortness of breath. 13:55 Abdomen/GI: Negative for abdominal pain, vomiting, diarrhea, constipation. 13:55 Skin: Positive for avulsion, of the bridge of nose. 13:55 All other systems are negative. Exam: 14:05 Constitutional: The patient appears in no acute distress, alert, awake, non-toxic, well cp developed, well nourished. 14:05 Head/face: Noted is 3 cm in length by 2 cm in width avulsion of skin bridge of nose. cp Sinus tenderness, that is mild, is located over the right frontal sinus. 14:05 Eyes: Periorbital structures: appear normal, Pupils: equal, round, and reactive to cp light and accomodation, Extraocular movements: intact throughout, Conjunctiva: normal, no exudate, no injection, Lids and lashes: appear normal, bilaterally. 14:05 ENT: External ear(s): are unremarkable, Ear canal(s): are normal, clear, TM's: dullness, bilaterally, Nose: bleeding, and is minimal, no septal hematoma is appreciated, Mouth: Lips: moist, Oral mucosa: moist, Posterior pharynx: Airway: no evidence of obstruction, patent. 14:05 Neck: C-spine: vertebral tenderness, is not appreciated, crepitus, is not appreciated, ROM/movement: is normal, is supple, without pain, no range of motions limitations. 14:05 Chest/axilla: Inspection: normal. 14:05 Cardiovascular: Rate: normal, Rhythm: regular. 14:05 Respiratory: the patient does not display signs of respiratory distress, Respirations: normal, no use of accessory muscles, no retractions, labored breathing, is not present, Breath sounds: are clear throughout, no decreased breath sounds, no stridor, no wheezing. 14:05 Abdomen/GI: Inspection: abdomen appears normal, Palpation: abdomen is soft and non-tender, in all quadrants. 14:05 Neuro: Orientation: to person, place \T\ time. Mentation: is normal, Cerebellar function: is grossly normal, Motor: moves all fours, strength is normal, Sensation: is normal. Vital Signs: 13:24 BP 147 / 84; Pulse 93; Resp 16 S; Temp 97.3(TE); Pulse Ox 99% on R/A; Weight 88.45 kg iw (R); Height 5 ft. 5 in. (165.10 cm) (R); Pain 8/10; 15:57 BP 119 / 63; Pulse 68; Resp 16; Pulse Ox 98% on R/A; iw 13:24 Body Mass Index 32.45 (88.45 kg, 165.10 cm) iw Juan Carlos Coma Score: 13:50 Eye Response: spontaneous(4). Verbal Response: oriented(5). Motor Response: obeys cp commands(6). Total: 15. MDM: 13:43 Patient medically screened. cp 14:59 Physician consultation: Warner Marquez MD was contacted at 14:55, regarding consult, cp patient's condition, wants patient admitted to hospitalist and will perform flap closure of wound tomorrow. 15:00 Data reviewed: vital signs, nurses notes, radiologic studies, CT scan, and as a result, cp I will admit patient. 15:05 Physician consultation: Chalo Chapman DO was contacted at 15:05, regarding admission, cp to the medical/surgical unit. patient's condition, and will see patient in ED, shortly. 05/21 14:57 Order name: CBC with Diff cp 05/21 14:57 Order name: BMP cp 05/21 14:57 Order name: PT-INR cp 05/21 14:57 Order name: Ptt, Activated cp 05/21 16:14 Order name: Urine Dipstick--Ancillary (enter results) bd 05/21 16:14 Order name: Urine --Ancillary (enter results) bd 05/21 13:48 Order name: CT Facial Bones W/O Con; Complete Time: 14:38 cp 05/21 13:48 Order name: Urine Dipstick-Ancillary (obtain specimen); Complete Time: 14:19 cp 05/21 13:48 Order name: Urine Test (obtain specimen); Complete Time: 14:19 cp 05/21 14:57 Order name: IV; Complete Time: 15:17 cp 05/21 14:57 Order name: Wound Care: please clean and irrigate wound, wet to dry dressing; Complete cp Time: 16:15 Administered Medications: 14:25 Drug: Tetanus-Diphtheria Toxoid Adult 0.5 ml {Long Term: [employer]. Exp: 09/23/2021. Lot #: [id number]. } Route: IM; Site: right deltoid; 14:25 Drug: Hydrocodone-Acetaminophen (7.5 mg-325 mg) 1 tabs Route: PO; iw 15:34 Drug: ceFAZolin 1 grams Volume: 50 ml; Route: IVPB; Infused Over: 30 mins; Site: right iw antecubital; 15:55 Drug: fentaNYL (PF) 25 mcg Route: IVP; Site: right antecubital; iw 15:55 Drug: Zofran (Ondansetron) 4 mg Route: IVP; Site: right antecubital; iw 17:06 Drug: NS 0.9% 1000 ml Route: IV; Rate: 1 bolus; Site: right antecubital; iw 17:07 Drug: morphine 2 mg Route: IVP; Site: right antecubital; iw 17:09 Drug: morphine 2 mg Route: IVP; Site: right antecubital; iw Disposition: 15:15 Chart complete. cp 05/22 06:53 Co-signature as Attending Physician, Saravanan Choudhury MD I agree with the assessment and kdr plan of care. Disposition: 05/21/20 15:02 Hospitalization ordered by Chalo Chapman for Observation. Preliminary diagnosis are Fracture of nasal bones, Open wound of nose. - Bed requested for Telemetry/MedSurg (observation). - Status is Observation. iw - Condition is Stable. - Problem is new. - Symptoms have improved. Signatures: Dispatcher [employer] Evie Murcia RN RN Saravanan Choudhury MD MD [facility] Martha Velázquez RN RN iw Edi Vivar PA PA cp Maile Alfonso RN RN ca1 Corrections: (The following items were deleted from the chart) 05/21 15:14 15:02 Hospitalization Ordered by Chalo Chapman DO for Observation. Preliminary cp diagnosis is Fracture of nasal bones. Bed requested for Telemetry/MedSurg (observation). Status is Observation. Condition is Stable. Problem is new. Symptoms have improved. cp 16:11 15:14 05/21/2020 15:02 Hospitalization Ordered by Chalo Chapman DO for Observation. dw Preliminary diagnosis is Fracture of nasal bones; Open wound of nose. Bed requested for Telemetry/MedSurg (observation). Status is Observation. Condition is Stable. Problem is new. Symptoms have improved. cp 17:31 16:11 05/21/2020 15:02 Hospitalization Ordered by Chalo Chapman DO for Observation. iw Preliminary diagnosis is Fracture of nasal bones; Open wound of nose. Bed requested for Telemetry/MedSurg (observation). Status is Observation. Condition is Stable. Problem is new. Symptoms have improved. dw
[2020-05-21 15:22] LABS: Absolute Lymphocytes (CBC) 1.7 K/uL (0.7-4.9); Basophils % 0.4 % (0-1.3); Hematocrit 38.2 % (36.0-45.0); Lymphocytes % 14.5 % (15.3-44.8); MPV 7.2 fL (7.6-11.3); RBC Red Blood Cell Count 4.59 M/uL (3.86-4.86)
[2020-05-21 15:37] LABS: Protime INR 0.97
[2020-05-21 15:40] LABS: Potassium 4.1 mmol/L (3.5-5.1)
[2020-05-21] MEDS ORDERED: FENTANYL CITR 100 MCG/2 ML ONE (16:03)
[2020-05-21] MEDS ORDERED: ONDANSETRON 4 MG/2 ML VIAL ONE (16:03)
--- NOTE | 2020-05-21 16:09 | P.HP ---
Certification for Inpatient Patient admitted to: Observation With expected LOS: <2 Midnights Patient will require the following post-hospital care: None Practitioner: I am a practitioner with admitting privileges, knowledge of patient current condition, hospital course, and medical plan of care. Services: Services provided to patient in accordance with Admission requirements found in Title 42 Section 412.3 of the Code of Federal Regulations Patient History Date of Service: 05/21/20 Primary Care Provider: Dr. Molina Reason for admission: Fall History of Present Illness: 29 yo CF presented to the ER after a fall. She apparently fell hitting a wall. This was not intentional. She apparently hit the number face plate near the base of the bridge of her nose. She reported bleeding thereafter. Significant skin tear was noted. The patient came to the ER for further evaluation. In the ER patient was evaluated. CT scan showed no global or or portal abnormality. Non displaced fracture at the tip of the nasal bone was noted nasal bone fracture identified. Nasal septum was midline. Facial bones appeared normal. Soft tissue injury of the nose was identified. No air form body noted. Patient was stable in the emergency room. ER spoke to plastic surgery who recommends that the patient be admitted to the hospital. The plan moving forward will be for a flap procedure tomorrow. I was asked to admit the patient. Patient overall stable. Pain under control. Patient with history of gestational diabetes. She last had her baby about 3 months ago by . She is not taking any medication at this time. Allergies aspirin Allergy (Unverified 07/02/17 15:32) Unknown Home medications list reviewed: Yes - Past Medical/Surgical History Diabetic: Yes -: Gestational diabetes -: Laceration repair of the left calf region Psychosocial/ Personal History: Patient is . 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 - Family History Mother -: Cancer (Breast cancer) Father -: Heart disease, Hypertension - Social History Smoking Status: Never smoker Alcohol use: No CD- Drugs: No Caffeine use: Yes Place of Residence: Home Review of Systems General: As per HPI Eyes: Unremarkable ENT: As per HPI Cardiovascular: Unremarkable Gastrointestinal: Unremarkable Genitourinary: Unremarkable Musculoskeletal: Unremarkable Integumentary: As per HPI Neurological: Unremarkable Lymphatics: Unremarkable Physical Examination - Physical Exam General: Alert, In no apparent distress, Oriented x3, Cooperative HEENT: Normocephalic, PERRLA, Other (Significant skin tear to the base of the nasal bridge. Swelling noted to the area. Blood noted to the excoriated area. No deviation of septum) Neck: Supple Respiratory: Clear to auscultation bilaterally, Normal air movement Cardiovascular: Normal pulses, Regular rate/rhythm Gastrointestinal: Normal bowel sounds, Non-distended, No tenderness, No masses, No rebound, No guarding Integumentary: Other (As above) Neurological: Normal speech, Normal strength at 5/5 x4 extr, Normal tone, Normal affect - Studies Laboratory Data (last 24 hrs) 05/21/20 15:15: PT 11.4, INR 0.97, APTT 26.1 05/21/20 15:15: Sodium 138, Potassium 4.1, BUN 14, Creatinine 0.78, Glucose 190 H 05/21/20 15:15: WBC 11.7 H, Hgb 13.2, Hct 38.2, Plt Count 339 Assessment and Plan - Plan Impression: Fall leading to nondisplaced fracture of the tip of nasal bone with significant skin tear History of gestational diabetes with noted hyperglycemia Plan: Fall leading to nondisplaced fracture of the tip of nasal bone with significant skin tear: Patient will be admitted for further observation. ER discuss case in detail with plastic surgery. Patient remain NPO after midnight in preparation for skin flap to the nasal region tomorrow. Will continue with IV antibiotic therapy. DVT prophylaxis in place. Will provide medication for pain. Will consult wound care for further management. Due to the nature of her injury patient declined having COVID test. Anticipate possible discharge tomorrow after surgery. History of gestational diabetes with noted hyperglycemia: Will check A1c. Blood sugar slightly elevated at this time. Provide Accu-Cheks. Sliding scale in place. Patient may require medication at discharge. Discharge Plan: Home Plan to discharge in: 24 Hours - Advance Directives Does patient have a Living Will: No Does patient have a Durable POA for Healthcare: No - Code Status/Comfort Care Code Status Assessed: Yes (Patient is full code) Time Spent Managing Pts Care (In Minutes): 55
[2020-05-21] MEDS ORDERED: NA CHLORIDE 0.9% 1,000 ML ONE (17:14)
[2020-05-21] MEDS ORDERED: MORPHINE 4 MG/ML SYR ONE (17:14)
[2020-05-21 17:38] LABS: Urine Blood NEGATIVE (NEG); Urine Glucose 3+ (NEG); Urine Protein NEGATIVE (NEG); Urine Specific Gravity >1.030 (1.005-1.030)
[2020-05-21] MEDS: INSULIN -REGULAR HUMAN 50 UNIT/0.5 ML ML SQ SCH ×2 (18:22→21:00)
[2020-05-21] MEDS ORDERED: GLUCAGON 1 MG/VIAL IM PRN (18:22)
[2020-05-21] MEDS ORDERED: INSULIN -REGULAR HUMAN 50 UNIT/0.5 ML ML SQ SCH (18:22)
[2020-05-21] MEDS ORDERED: TRAMADOL HCL 50 MG TAB PO PRN (18:22)
[2020-05-21] MEDS ORDERED: D50W 25 GM/50 ML SYRINGE/VIAL IV PRN (18:22)
[2020-05-21] MEDS ORDERED: ONDANSETRON 4 MG/2 ML VIAL IV PRN (18:22)
[2020-05-21] MEDS: NA CHLORIDE 0.9% 1,000 ML IV SCH (18:22)
[2020-05-21] MEDS ORDERED: MORPHINE 2 MG/ML SYR IV PRN (18:22)
[2020-05-21] MEDS ORDERED: ACETAMINOPHEN 500 MG TAB PO PRN (18:22)
[2020-05-21] MEDS: CEFAZOLIN/SWI 1gm 1 GM/10 ML SYR IVP SCH (18:46)
[2020-05-21 20:10] VITALS: BMI 32.3
[2020-05-21] MEDS: HYDROCODONE/APAP 7.5/325 MG TAB PO PRN (21:13)
[2020-05-21] MEDS: ENOXAPARIN 40 MG/0.4 ML SQ SCH (21:13)
[2020-05-21] MEDS ORDERED: LORazepam 2 MG/ML VIAL IV ONE (22:14)
[2020-05-22] MEDS: CEFAZOLIN/SWI 1gm 1 GM/10 ML SYR IVP SCH ×2 (00:30→09:00)
[2020-05-22] MEDS: NA CHLORIDE 0.9% 1,000 ML IV SCH (00:33)
[2020-05-22 05:41] LABS: Absolute Lymphocytes (CBC) 2.8 K/uL (0.7-4.9); Basophils % 0.6 % (0-1.3); Hematocrit 33.7 % (36.0-45.0); Lymphocytes % 33.6 % (15.3-44.8); MPV 7.3 fL (7.6-11.3); RBC Red Blood Cell Count 4.05 M/uL (3.86-4.86)
[2020-05-22 05:43] LABS: BUN Blood Urea Nitrogen 13 mg/dL (7-18); Bicarbonate 28 mmol/L (21-32); Glucose Level 162 mg/dL (74-106); Potassium 3.9 mmol/L (3.5-5.1); Sodium Level 141 mmol/L (136-145)
[2020-05-22] MEDS: HYDROCODONE/APAP 7.5/325 MG TAB PO PRN ×2 (05:47→12:15)
[2020-05-22] MEDS: INSULIN -REGULAR HUMAN 50 UNIT/0.5 ML ML SQ SCH ×2 (07:30→11:29)
[2020-05-22] MEDS: CEFAZOLIN/SWI 1gm 1 GM/10 ML SYR ONE ×2 (08:35→09:00)
[2020-05-22] MEDS ORDERED: propofoL 200 MG/20 ML VIAL IV ONE (08:56)
[2020-05-22] MEDS ORDERED: ONDANSETRON 4 MG/2 ML VIAL ONE (08:56)
[2020-05-22] MEDS ORDERED: KETOROLAC 30 MG/ML INJ ONE (08:56)
[2020-05-22] MEDS ORDERED: FENTANYL CITR 100 MCG/2 ML ONE (08:56)
[2020-05-22] MEDS ORDERED: LIDOCAINE 2% MPF 5 ML VIAL ONE (08:56)
[2020-05-22] MEDS ORDERED: MIDAZOLAM HCL 2 MG/2 ML INJ ONE (08:56)
[2020-05-22] MEDS ORDERED: dexAMETHasone 4 MG/ML VIAL ONE (08:57)
[2020-05-22] MEDS ORDERED: ROCURONIUM 50 MG/5 ML VIAL IV ONE (08:57)
[2020-05-22] MEDS: ENOXAPARIN 40 MG/0.4 ML SQ SCH (09:00)
[2020-05-22] MEDS ORDERED: INFLUENZA VACCINE (for 3y+) 0.5 ML DOSE IMVAC ONE (09:00)
[2020-05-22] MEDS ORDERED: CEFAZOLIN SODIUM 1 GM/VIAL ONE (09:09)
[2020-05-22] MEDS ORDERED: LIDOCAINE 1% W/EPI 1:100,000 MDV 20 ML VIAL ONE (09:21)
[2020-05-22] MEDS ORDERED: Phenylephrine HCl 10 MG/ML 1 ML VIAL ONE (09:51)
[2020-05-22] MEDS ORDERED: NS 0.9% VIAL 20 ML ONE (09:51)
[2020-05-22] MEDS ORDERED: NA CHLORIDE 0.9% 1,000 ML ONE (09:54)
[2020-05-22] MEDS ORDERED: PROMETHAZINE INJ 25 MG/ML AMP ONE (10:36)
[2020-05-22 10:39] VITALS: O2SAT 99
--- NOTE | 2020-05-22 11:11 | OP ---
Surgeon: Warner Marquez MD Preoperative Diagnosis: Avulsion of the skin and subcutaneous tissue at bridge of nose. Postoperative Diagnosis: Avulsion of the skin and subcutaneous tissue at bridge of nose. Procedure Performed: Debridement of skin and subcutaneous tissue, simple closure of approximately 1. 5 cm and full-thickness skin graft. Anesthesia: General. Procedure In Detail: After satisfactory induction of general anesthesia, 1% xylocaine with epinephri ne was used to inject the bridge of nose area and the left retroauricular area. The areas were prepp ed with Betadine scrub and paint. Dry sterile drapes were applied in the usual manner. A scalpel was used to debride the wound. The patient had a square shaped laceration with avulsion. The corners o f the square were freshened up and could be closed advancing the wound. This was done medially and l aterally, inferior, not superiorly. Approximately 0.5 cm inferior, 0.25 cm medially and laterally we re done. This left defect approximately 1 x 1 cm square. Then, the left retroauricular area was adalberto roached. A 10 blade was used to incise the skin excising approximately 1.5 x 1 cm square diagonal an d then the electrocautery was used for hemostasis. The graft was harvested full-thickness and then t he wound was closed with 4-0 PDS interrupted followed by a 4-0 Prolene simple on the skin. The skin was then defatted with Iris scissors and it was sewn in place with a stent at the 12 o'minerva ck, 6 o'clock, 3 o'clock and 9 o'clock positions. Then between those 6-0 Prolene with a running ____ graft to the surrounding soft tissue and then tied to itself. sutures were tied. The patient tolerated procedure well were applied at the 6 o'clock position and at the 3 o'clock position for skin closures. The patient tolerated procedure well and returned to Re covery. LORA/CRIS Voice ID: [id number] Report ID: [id number]
[2020-05-22] MEDS ORDERED: POTASSIUM CL SA 10 MEQ TAB PO ONE (12:00)
[2020-05-22 12:14] VITALS: BP 111/55; TEMP 97.7
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
== END 2020-05-22 14:42 | disposition home or self-care (01) ==
LOC: ER 13:00 → ERHOLD 15:55 → 2ND 17:13
PROVIDERS: ADMIT Family Medicine; ATTEND Family Medicine
PROC: 0HR1X73 Replacement of Face Skin with Autologous Tissue Substitute, Full Thickness, External Approach (ICD-10-PCS; principal; 2020-05-22 09:00)
DX: S01.20XA Unspecified open wound of nose, initial encounter (principal); S02.2XXA Fracture of nasal bones, initial encounter for closed fracture; R73.9 Hyperglycemia, unspecified; W01.198A Fall on same level from slipping, tripping and stumbling with subsequent striking against other object, initial encounter; Z23 Encounter for immunization
CPT/HCPCS: 36415; 70486; 76377; 80048; 81003; 81025; 82947; 83036; 83735; 85025; 85610; 85730; 87040; 88304; 90471; 90714; 96374; 96375; 99285; G0378; J0690; J1100; J1650; J2250; J2270; J2370; J2405; J2550; J2704; J3010; J7030

== ENCOUNTER 2024-07-21 20:01 | Emergency (ER) | payer BC ==
[2024-07-21] MEDS ORDERED: methocarbamoL 750 MG TAB ONE (20:58)
[2024-07-21] MEDS ORDERED: ONDANSETRON 4 MG (ODT) TAB ONE (20:59)
[2024-07-21] MEDS ORDERED: IBUPROFEN 400 MG TAB ONE (20:59)
[2024-07-21] MEDS ORDERED: CODEINE 30MG/APAP 300MG TAB ONE (20:59)
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
[2024-07-21] MEDS ORDERED: PROMETHAZINE 25 MG TABLET ONE (23:11)
[2024-07-21] MEDS ORDERED: HYDROCODONE/APAP 5/325 MG TAB ONE (23:12)
[2024-07-22 00:26] VITALS: O2SAT 100
[2024-07-22 00:27] VITALS: BP 118/72; TEMP 98.1
== END 2024-07-21 23:51 | disposition home or self-care (01) ==
LOC: ER 20:01
DX: S13.4XXA Sprain of ligaments of cervical spine, initial encounter (principal); S63.502A Unspecified sprain of left wrist, initial encounter; S53.402A Unspecified sprain of left elbow, initial encounter; S20.219A Contusion of unspecified front wall of thorax, initial encounter; M25.551 Pain in right hip; V49.40XA Driver injured in collision with unspecified motor vehicles in traffic accident, initial encounter
CPT/HCPCS: 70450; 71250; 72125; 74176; 73130 ×2; 73090 ×2; 99284; Q0169; Q0162